=== PATIENT | male | born 1980 | race Caucasian/White ===

== ENCOUNTER 2019-01-06 19:02 | Inpatient (IN) | payer BC ==
[~2019-01-06] VITALS: Ht 177.8 cm; Wt 78.9 kg
[2019-01-06 19:05] VITALS: BP_SYST 162
[2019-01-06 20:21] LABS: BASOPHILS % (AUTO) 0.3 % (0.0-2.0); EOSINOPHILS # (AUTO) 0.1 K/uL (0.0-0.4); EOSINOPHILS % (AUTO) 0.8 % (0.0-4.0); HEMATOCRIT 52.1 % (36-54); HEMOGLOBIN 16.9 g/dL (14.0-18.0); LYMPHOCYTES # (AUTO) 1.5 K/uL (1.0-5.5); LYMPHOCYTES % (AUTO) 16.2 % (20.5-51.5); MEAN CORPUSCULAR HEMOGLOBIN 30 pg (27-31); MEAN CORPUSCULAR HGB CONC 33 % (32-36); MEAN CORPUSCULAR VOLUME 93 fL (79.0-98.0); MONOCYTES # (AUTO) 0.6 K/uL (0.0-1.0); MONOCYTES % (AUTO) 6.5 % (1.7-9.3); NEUTROPHILS # (AUTO) 6.8 K/uL (1.8-7.7); NEUTROPHILS % (AUTO) 76.2 % (40.0-70.0); PLATELET COUNT (AUTO) 268 K/uL (130-430); RED BLOOD CELL COUNT(AUTO) 5.62 MIL/uL (4.2-6.2)
[2019-01-06 20:27] LABS: CALCIUM 9.4 mg/dL (8.4-11.0); CREATININE 0.87 mg/dL (0.55-1.30); POTASSIUM 4.4 mmol/L (3.5-5.1)
[2019-01-06 20:32] LABS: ALBUMIN 3.7 g/dL (3.4-4.8); TOTAL BILIRUBIN 0.6 mg/dL (0.0-1.0)
[2019-01-06 20:56] LABS: BILIRUBIN,URINE NEGATIVE (NEGATIVE); BLOOD, URINE NEGATIVE (NEGATIVE); CLARITY/URINE CLEAR (CLEAR); GLUCOSE,URINE NEGATIVE (NEGATIVE); KETONES,URINE NEGATIVE (NEGATIVE); LEUKOCYTE ESTERASE ,URINE NEGATIVE (NEGATIVE); NITRITE, URINE NEGATIVE (NEGATIVE); PH,URINE 5.5 (5.0-8.0); PROTEIN URINE NEGATIVE (NEGATIVE); UROBILINOGEN,URINE 0.2 (0.2-1.0)
[2019-01-06 21:00] LABS: COLOR,URINE STRAW (YELLOW)
[2019-01-06 21:07] LABS: BARBITURATE, URINE NEGATIVE (NEG <=200); BENZODIAZEPINE, URINE NEGATIVE (NEG <=150); CANNABINOID, URINE NEGATIVE (NEG <=50); COCAINE, URINE NEGATIVE (NEG <=150); METHAMPHETAMINES SCREEN,URINE NEGATIVE (NEG <=500); OPIATE, URINE NEGATIVE (NEG <=100); PHENCYCLIDINE SCREEN,URINE NEGATIVE (NEG <=25); UR TRICYCLIC ANTIDEPRESSANTS NEGATIVE (NEG <=300); URINE AMPHETAMINE NEGATIVE (NEG <=500); URINE METHADONE NEGATIVE (NEG <=200); URINE OXYCODONE SCREEN NEGATIVE (NEG <=100); URINE PROPOXYPHENE SCREEN NEGATIVE (NEG <=300)
[2019-01-06] MEDS ORDERED: hydrALAZINE HCL 20 MG/ML VIAL IVP ONE (21:30)
[2019-01-06] MEDS ORDERED: NACL 0.9% 1,000 ML IV ONE ×2 (21:30→22:30)
[2019-01-06 22:43] LABS: CKMB RELATIVE INDEX 0.6 (0.0-2.9); CREATINE KINASE MB 14.8 ng/mL (0-3.6)
[2019-01-06] MEDS ORDERED: ZOLPIDEM TARTRATE 5 MG TABLET PO ONE (22:45)
[2019-01-07] VITALS (12 sets, daily range): BP systolic 137–186
[2019-01-07] MEDS ORDERED: ZOLPIDEM TARTRATE 5 MG TABLET PO ONE (01:00)
[2019-01-07] MEDS: METOPROLOL SUCCINATE 25 MG TAB.SR.24H (TOPROL XL) PO SCH ×3 (01:25→20:09)
[2019-01-07] MEDS: D5/0.45 NS 1,000 ML IV SCH ×4 (02:01→22:36)
[2019-01-07] MEDS ORDERED: ACETAMINOPHEN 325 MG TABLET PO PRN (06:15)
[2019-01-07] MEDS ORDERED: ONDANSETRON HCL 4 MG/2 ML VIAL IVP PRN (06:15)
[2019-01-07] MEDS ORDERED: LORazepam 2 MG/ML VIAL IVP PRN (06:15)
[2019-01-07 09:12] LABS: BASOPHILS % (AUTO) 0.2 % (0.0-2.0); EOSINOPHILS # (AUTO) 0.1 K/uL (0.0-0.4); EOSINOPHILS % (AUTO) 0.7 % (0.0-4.0); HEMATOCRIT 50.7 % (36-54); LYMPHOCYTES # (AUTO) 1.2 K/uL (1.0-5.5); LYMPHOCYTES % (AUTO) 14.3 % (20.5-51.5); MEAN CORPUSCULAR HEMOGLOBIN 31 pg (27-31); MEAN CORPUSCULAR HGB CONC 34 % (32-36); MEAN CORPUSCULAR VOLUME 92 fL (79.0-98.0); MONOCYTES # (AUTO) 0.5 K/uL (0.0-1.0); MONOCYTES % (AUTO) 6.8 % (1.7-9.3); NEUTROPHILS # (AUTO) 6.2 K/uL (1.8-7.7); PLATELET COUNT (AUTO) 312 K/uL (130-430); RED BLOOD CELL COUNT(AUTO) 5.51 MIL/uL (4.2-6.2); RED CELL DISTRIBUTION WIDTH 12.2 % (9.0-15.0); WHITE BLOOD COUNT (AUTO) 8.1 K/uL (4.8-10.8)
[2019-01-07 09:24] LABS: CALCIUM 9.1 mg/dL (8.4-11.0); CREATININE 0.95 mg/dL (0.55-1.30); POTASSIUM 3.9 mmol/L (3.5-5.1)
[2019-01-07 09:32] LABS: ALBUMIN 3.6 g/dL (3.4-4.8); TOTAL BILIRUBIN 0.6 mg/dL (0.0-1.0)
[2019-01-07] MEDS: cloNIDine HCL 0.1 MG TABLET PO PRN ×2 (11:50→17:52)
[2019-01-07] MEDS ORDERED: HYDROCHLOROTHIAZIDE 25 MG TABLET (HCTZ) PO ONE (13:15)
[2019-01-07] MEDS: cefTRIAXone 1 GM in D5W 50 ML IV SCH (13:32)
[2019-01-07] MEDS ORDERED: amLODIPine BESYLATE 10 MG TABLET PO ONE (19:15)
[2019-01-07] MEDS: HYDROcodone/ACETAMIN 10-325 MG TAB PO PRN (20:50)
[2019-01-08] VITALS: BP_SYST 142
[2019-01-08 07:44] LABS: BASOPHILS % (AUTO) 0.3 % (0.0-2.0); EOSINOPHILS # (AUTO) 0.2 K/uL (0.0-0.4); EOSINOPHILS % (AUTO) 2.5 % (0.0-4.0); HEMATOCRIT 52.2 % (36-54); LYMPHOCYTES # (AUTO) 1.6 K/uL (1.0-5.5); LYMPHOCYTES % (AUTO) 21.3 % (20.5-51.5); MEAN CORPUSCULAR HEMOGLOBIN 30 pg (27-31); MEAN CORPUSCULAR HGB CONC 33 % (32-36); MEAN CORPUSCULAR VOLUME 93 fL (79.0-98.0); MONOCYTES # (AUTO) 0.7 K/uL (0.0-1.0); MONOCYTES % (AUTO) 8.8 % (1.7-9.3); NEUTROPHILS # (AUTO) 4.9 K/uL (1.8-7.7); NEUTROPHILS % (AUTO) 67.1 % (40.0-70.0); PLATELET COUNT (AUTO) 305 K/uL (130-430); RED BLOOD CELL COUNT(AUTO) 5.64 MIL/uL (4.2-6.2); RED CELL DISTRIBUTION WIDTH 11.9 % (9.0-15.0); WHITE BLOOD COUNT (AUTO) 7.4 K/uL (4.8-10.8)
[2019-01-08 07:49] LABS: C-REACTIVE PROTEIN QUANT 1.5 mg/dL (0-0.5); CREATININE 0.91 mg/dL (0.55-1.30); PHOSPHORUS 4.4 mg/dL (2.7-4.5); POTASSIUM 3.8 mmol/L (3.5-5.1); THYROID STIMULATING HORMONE 1.22 uIu/mL (0.34-4.82)
[2019-01-08 07:55] VITALS: BP_SYST 141
[2019-01-08 08:16] LABS: CKMB RELATIVE INDEX 0.4 (0.0-2.9); CREATINE KINASE MB 3.9 ng/mL (0-3.6)
[2019-01-08] MEDS: HYDROCHLOROTHIAZIDE 25 MG TABLET (HCTZ) PO SCH (09:12)
[2019-01-08] MEDS: amLODIPine BESYLATE 10 MG TABLET PO SCH (09:13)
[2019-01-08] MEDS: METOPROLOL SUCCINATE 25 MG TAB.SR.24H (TOPROL XL) PO SCH ×2 (09:14→20:03)
[2019-01-08] MEDS: D5/0.45 NS 1,000 ML IV SCH (09:16)
[2019-01-08 11:03] LABS: ERYTHROCYTE SEDIMENTATION RATE 4 MM/HR (0-15)
[2019-01-08] MEDS: HYDROcodone/ACETAMIN 5-325 MG TAB (NORCO/ VICODIN) PO PRN ×3 (11:19→21:57)
[2019-01-08 11:35] VITALS: BP_SYST 152
[2019-01-08] MEDS: cefTRIAXone 1 GM in D5W 50 ML IV SCH (13:06)
[2019-01-08 15:15] VITALS: BP_SYST 143
[2019-01-08] MEDS: BALSAM PERU/CASTOR OIL 60 GM OINT...G. TP SCH (15:22)
[2019-01-08 19:15] VITALS: BP_SYST 141
[2019-01-08] MEDS: CIPROFLOXACIN HCL 500 MG TABLET PO SCH (21:56)
[2019-01-08] MEDS: traZODone HCL 50 MG TABLET (DESYREL) PO PRN (23:28)
[2019-01-09 00:30] VITALS: BP_SYST 147
[2019-01-09] MEDS: D5/0.45 NS 1,000 ML IV SCH ×3 (02:11→16:29)
[2019-01-09] MEDS: HYDROcodone/ACETAMIN 5-325 MG TAB (NORCO/ VICODIN) PO PRN ×3 (05:45→22:13)
[2019-01-09 06:56] LABS: BASOPHILS % (AUTO) 0.5 % (0.0-2.0); EOSINOPHILS # (AUTO) 0.2 K/uL (0.0-0.4); EOSINOPHILS % (AUTO) 2.8 % (0.0-4.0); HEMOGLOBIN 16.2 g/dL (14.0-18.0); LYMPHOCYTES # (AUTO) 1.7 K/uL (1.0-5.5); LYMPHOCYTES % (AUTO) 27.5 % (20.5-51.5); MEAN CORPUSCULAR HEMOGLOBIN 31 pg (27-31); MEAN CORPUSCULAR HGB CONC 34 % (32-36); MEAN CORPUSCULAR VOLUME 93 fL (79.0-98.0); MONOCYTES # (AUTO) 0.6 K/uL (0.0-1.0); MONOCYTES % (AUTO) 8.8 % (1.7-9.3); NEUTROPHILS # (AUTO) 3.7 K/uL (1.8-7.7); NEUTROPHILS % (AUTO) 60.4 % (40.0-70.0); PLATELET COUNT (AUTO) 292 K/uL (130-430); RED BLOOD CELL COUNT(AUTO) 5.19 MIL/uL (4.2-6.2); RED CELL DISTRIBUTION WIDTH 11.9 % (9.0-15.0); WHITE BLOOD COUNT (AUTO) 6.3 K/uL (4.8-10.8)
[2019-01-09 07:21] LABS: C-REACTIVE PROTEIN QUANT 1.1 mg/dL (0-0.5); CREATININE 0.95 mg/dL (0.55-1.30); POTASSIUM 4.1 mmol/L (3.5-5.1)
[2019-01-09 07:27] LABS: TOTAL IRON BIND. CAPACITY 270 ug/dL (250-450)
[2019-01-09 07:41] LABS: ALBUMIN 3.4 g/dL (3.4-4.8); BILIRUBIN,DIRECT 0.1 mg/dL (0.0-0.3); TOTAL BILIRUBIN 0.6 mg/dL (0.0-1.0)
[2019-01-09 08:00] VITALS: BP_SYST 135
[2019-01-09 08:04] LABS: CKMB RELATIVE INDEX 0.5 (0.0-2.9)
[2019-01-09 08:26] LABS: ERYTHROCYTE SEDIMENTATION RATE 7 MM/HR (0-15)
[2019-01-09] MEDS: CIPROFLOXACIN HCL 500 MG TABLET PO SCH ×2 (09:14→22:15)
[2019-01-09] MEDS: HYDROCHLOROTHIAZIDE 25 MG TABLET (HCTZ) PO SCH (09:14)
[2019-01-09] MEDS: amLODIPine BESYLATE 10 MG TABLET PO SCH (09:15)
[2019-01-09] MEDS: METOPROLOL SUCCINATE 25 MG TAB.SR.24H (TOPROL XL) PO SCH ×2 (09:15→20:14)
[2019-01-09] MEDS: BALSAM PERU/CASTOR OIL 60 GM OINT...G. TP SCH (09:17)
[2019-01-09] MEDS ORDERED: CEFEPIME 1 GM in D5W 50 ML IV ONE (11:15)
[2019-01-09 11:33] VITALS: BP_SYST 142
[2019-01-09 15:47] VITALS: BP_SYST 149
[2019-01-09] MEDS: HYDROcodone/ACETAMIN 10-325 MG TAB PO PRN (16:04)
[2019-01-09 20:11] VITALS: BP_SYST 137
[2019-01-09] MEDS: CEFEPIME 1 GM in D5W 50 ML IV SCH (20:16)
[2019-01-09] MEDS: traZODone HCL 50 MG TABLET (DESYREL) PO PRN (22:14)
[2019-01-09 23:58] VITALS: BP_SYST 134
[2019-01-10] MEDS: D5/0.45 NS 1,000 ML IV SCH ×2 (02:45→15:22)
[2019-01-10 07:38] LABS: ALBUMIN 3.1 g/dL (3.4-4.8); CALCIUM 8.7 mg/dL (8.4-11.0); CREATININE 0.95 mg/dL (0.55-1.30); POTASSIUM 4.3 mmol/L (3.5-5.1); TOTAL BILIRUBIN 0.4 mg/dL (0.0-1.0)
[2019-01-10 07:42] LABS: BASOPHILS % (AUTO) 0.5 % (0.0-2.0); EOSINOPHILS # (AUTO) 0.2 K/uL (0.0-0.4); EOSINOPHILS % (AUTO) 3.5 % (0.0-4.0); HEMATOCRIT 44.3 % (36-54); HEMOGLOBIN 15.1 g/dL (14.0-18.0); LYMPHOCYTES # (AUTO) 1.6 K/uL (1.0-5.5); LYMPHOCYTES % (AUTO) 34.5 % (20.5-51.5); MEAN CORPUSCULAR HEMOGLOBIN 31 pg (27-31); MEAN CORPUSCULAR HGB CONC 34 % (32-36); MEAN CORPUSCULAR VOLUME 92 fL (79.0-98.0); MONOCYTES # (AUTO) 0.4 K/uL (0.0-1.0); MONOCYTES % (AUTO) 8.1 % (1.7-9.3); NEUTROPHILS # (AUTO) 2.4 K/uL (1.8-7.7); NEUTROPHILS % (AUTO) 53.4 % (40.0-70.0); PLATELET COUNT (AUTO) 276 K/uL (130-430); RED BLOOD CELL COUNT(AUTO) 4.82 MIL/uL (4.2-6.2); RED CELL DISTRIBUTION WIDTH 11.6 % (9.0-15.0); WHITE BLOOD COUNT (AUTO) 4.6 K/uL (4.8-10.8)
[2019-01-10] MEDS: HYDROCHLOROTHIAZIDE 25 MG TABLET (HCTZ) PO SCH (07:55)
[2019-01-10] MEDS: METOPROLOL SUCCINATE 25 MG TAB.SR.24H (TOPROL XL) PO SCH ×2 (07:55→21:09)
[2019-01-10] MEDS: amLODIPine BESYLATE 10 MG TABLET PO SCH (07:55)
[2019-01-10] MEDS: CEFEPIME 1 GM in D5W 50 ML IV SCH ×2 (07:56→21:10)
[2019-01-10 08:00] VITALS: BP_SYST 143
[2019-01-10] MEDS: BALSAM PERU/CASTOR OIL 60 GM OINT...G. TP SCH (09:21)
[2019-01-10] MEDS: CIPROFLOXACIN HCL 500 MG TABLET PO SCH ×2 (09:21→21:09)
[2019-01-10] MEDS: HYDROcodone/ACETAMIN 5-325 MG TAB (NORCO/ VICODIN) PO PRN ×3 (09:39→21:19)
[2019-01-10 10:07] LABS: HEPATITIS A AB, IgM Negative (Negative); HEPATITIS B CORE AB, IgM Negative (Negative); HEPATITIS B SURFACE AG Negative (Negative)
[2019-01-10 11:06] LABS: FERRITIN 105 ng/mL (30-400)
[2019-01-10 13:56] VITALS: BP_SYST 137
[2019-01-10] MEDS ORDERED: QUEtiapine FUMARATE 25 MG TABLET PO ONE (14:50)
[2019-01-10 16:54] VITALS: BP_SYST 142
[2019-01-10] MEDS ORDERED: TRAZ-218 PO (17:41)
[2019-01-10] MEDS ORDERED: METO-540 PO (17:41)
[2019-01-10] MEDS ORDERED: SER25 PO (17:41)
[2019-01-10] MEDS ORDERED: CIPR-211 PO (17:41)
[2019-01-10] MEDS ORDERED: HCT25 PO (17:41)
[2019-01-10] MEDS ORDERED: NOR10 PO (17:41)
[2019-01-10 19:08] LABS: ANTI NUCLEAR AB WITH REFLEX Negative (Negative)
[2019-01-10] MEDS ORDERED: DOCUSATE SODIUM 100 MG CAPSULE PO SCH (21:00)
[2019-01-10 21:03] VITALS: BP_SYST 138
[2019-01-10] MEDS: QUEtiapine FUMARATE 25 MG TABLET PO SCH (21:09)
[2019-01-10] MEDS: NORMAL SALINE 5 ML DISP.SYRIN IVF SCH (21:10)
[2019-01-10 23:27] VITALS: BP_SYST 134
[2019-01-11] MEDS: NORMAL SALINE 5 ML DISP.SYRIN IVF SCH (06:00)
[2019-01-11 07:13] LABS: BASOPHILS % (AUTO) 0.5 % (0.0-2.0); EOSINOPHILS # (AUTO) 0.2 K/uL (0.0-0.4); EOSINOPHILS % (AUTO) 3.3 % (0.0-4.0); HEMATOCRIT 46.5 % (36-54); HEMOGLOBIN 15.7 g/dL (14.0-18.0); LYMPHOCYTES # (AUTO) 1.9 K/uL (1.0-5.5); LYMPHOCYTES % (AUTO) 34.4 % (20.5-51.5); MEAN CORPUSCULAR HEMOGLOBIN 31 pg (27-31); MEAN CORPUSCULAR HGB CONC 34 % (32-36); MEAN CORPUSCULAR VOLUME 92 fL (79.0-98.0); MONOCYTES # (AUTO) 0.5 K/uL (0.0-1.0); MONOCYTES % (AUTO) 8.4 % (1.7-9.3); NEUTROPHILS # (AUTO) 2.9 K/uL (1.8-7.7); NEUTROPHILS % (AUTO) 53.4 % (40.0-70.0); PLATELET COUNT (AUTO) 301 K/uL (130-430); RED BLOOD CELL COUNT(AUTO) 5.06 MIL/uL (4.2-6.2); WHITE BLOOD COUNT (AUTO) 5.5 K/uL (4.8-10.8)
[2019-01-11 07:23] LABS: ALANINE AMINOTRANSFERASE 65 U/L (12-78); ALBUMIN 3.1 g/dL (3.4-4.8); ANION GAP 5 (5-15); ASPARTATE AMINOTRANSFERASE 23 U/L (10-37); CALCIUM 8.6 mg/dL (8.4-11.0); CHLORIDE 101 mmol/L (98-107); CREATININE 0.98 mg/dL (0.55-1.30); GLUCOSE 87 mg/dL (70-99); POTASSIUM 4.2 mmol/L (3.5-5.1); SODIUM SERUM 136 mmol/L (136-145); TOTAL BILIRUBIN 0.3 mg/dL (0.0-1.0); UREA NITROGEN, BLOOD 19 mg/dL (8-21)
[2019-01-11 07:26] LABS: GFR AFRICAN AMERICAN 111 mL/min (>90)
[2019-01-11 07:53] LABS: C-REACTIVE PROTEIN QUANT < 0.2 mg/dL (0-0.5)
[2019-01-11 08:00] VITALS: BP_SYST 146
[2019-01-11] MEDS: CIPROFLOXACIN HCL 500 MG TABLET PO SCH (08:51)
[2019-01-11] MEDS: QUEtiapine FUMARATE 25 MG TABLET PO SCH (08:52)
[2019-01-11] MEDS: METOPROLOL SUCCINATE 25 MG TAB.SR.24H (TOPROL XL) PO SCH (08:52)
[2019-01-11] MEDS: amLODIPine BESYLATE 10 MG TABLET PO SCH (08:52)
[2019-01-11] MEDS: HYDROCHLOROTHIAZIDE 25 MG TABLET (HCTZ) PO SCH (08:53)
[2019-01-11] MEDS: CEFEPIME 1 GM in D5W 50 ML IV SCH (08:53)
[2019-01-11 08:55] LABS: ERYTHROCYTE SEDIMENTATION RATE 8 MM/HR (0-15)
[2019-01-11] MEDS: HYDROcodone/ACETAMIN 5-325 MG TAB (NORCO/ VICODIN) PO PRN (09:01)
[2019-01-11] MEDS: BALSAM PERU/CASTOR OIL 60 GM OINT...G. TP SCH (09:01)
[2019-01-11 12:59] VITALS: BP_SYST 146
[2019-01-11 13:06] VITALS: BP_SYST 141
[2019-01-11] MEDS ORDERED: METOPROLOL SUCCINATE 25 MG TAB.SR.24H (TOPROL XL) PO SCH (21:00)
[2019-01-12 05:06] LABS: ALPHA-1-ANTITRYPSIN, S 151 mg/dL (90-200); CERULOPLASMIN 27.1 mg/dL (16.0-31.0)
[2019-01-13 16:06] LABS: ANTI-SMOOTH MUSCLE AB 9 Units (0-19)
== END 2019-01-11 14:30 | disposition home or self-care (01) | DRG 602 ==
LOC: SED 19:02 → EDBD 01-07 00:09 → STU 01-07 00:09 → SMU 01-08 22:15
PROVIDERS: ADMIT Preventive Medicine Preventive Medicine/Occupational Environmental Medicine; ATTEND Preventive Medicine Preventive Medicine/Occupational Environmental Medicine
DX: L03.113 Cellulitis of right upper limb (principal); E43 Unspecified severe protein-calorie malnutrition; K83.1 Obstruction of bile duct; M62.82 Rhabdomyolysis; T23.001A Burn of unspecified degree of right hand, unspecified site, initial encounter; F31.9 Bipolar disorder, unspecified; F41.0 Panic disorder [episodic paroxysmal anxiety]; G47.00 Insomnia, unspecified; H11.30 Conjunctival hemorrhage, unspecified eye; I11.9 Hypertensive heart disease without heart failure; I27.21 Secondary pulmonary arterial hypertension; L03.011 Cellulitis of right finger; X08.8XXA Exposure to other specified smoke, fire and flames, initial encounter; Y93.89 Activity, other specified; Y92.89 Other specified places as the place of occurrence of the external cause; Y99.8 Other external cause status
CPT/HCPCS: 36415; 70450-TC; 76700-TC; 80048; 80053; 80061; 80074; 80076; 80307; 81003; 82103; 82140-TC; 82390; 82550-TC; 82553-TC; 82728; 82977-TC; 83516; 83540-TC; 83550-TC; 83735-TC; 84100-TC; 84443-TC; 85025; 85651-TC; 86038; 86140; 87081; 93005; 93306; 96374; 99285; G0378; J0360; J0692; J0696; J7030; J7060